=== PATIENT | female | born 1945 | race Caucasian/White ===

== ENCOUNTER → 2016-09-17 | Day surgery (SDC) | payer OTHER ==
[2016-08-28 13:38] VITALS: Ht 156.2 cm; Wt 63.6 kg
[~2016-09-17] VITALS: Ht 156.2 cm; Wt 63.6 kg
[~2016-09-17] MED LIST: 500ML BSS 0.3ML EPI 1:1000PF IRRIG ONE; ACETAMINOPHEN 325 MG TAB PO PRN; AMVISC PLUS 0.8ML SYRINGE INT OCU ONE; ASPI81TA28 PO; B-COCAP2 PO; BETAMETHASONE TOP; BIOT1CAP8 PO; BROM0.0911 OPR; BSS FLUSH ONE; CALC600T PO; CHOL100010 PO; CO Q10 PO; ENDOCOAT 0.85ML SYRINGE INT OCU ONE; EpINEphrine INJ 1MG/ML AMP 1 MG/ML AMP ONE; FENTANYL CITRATE INJ 50 MCG/1 ML 2 ML VIAL ONE; LACTATED RINGER'S 1000ML 500 ML IV SCH; LIDOCAINE 4% OP SOLN DROP CHARGE ONE; LIDOCAINE 4% OP SOLN DROP CHARGE OPR SCH; LIDOCAINE HCL 1% MPF 2 ML VIAL ONE; LOSA50TA6 PO; LOTE0.5S OPR; MIDAZOLAM HCL 1 MG/ML 2ML VIAL ONE; MISCCAP80 PO; MIX: 4ML BSS 1ML EPI 1:1000 PF TOP ONE; MOXIFLOXACIN OPH SOLN PER DROP CHARGE ONE; MULT-506 PO; OMEG10007 PO; POVIDONE-IODINE OP SOLN 30 ML BTL ONE; PRED1SUS OPR; PROPARACAINE 0.5% OP SOLN PER DROP CHARGE OPR SCH; SIMV40TA2 PO; TOBRAMYCIN/DEXAMETHASONE OPH OINT PER APPLN CHARGE ONE; VALA500T39 PO
[2016-09-17] MEDS: PHENYLEPHRINE HCL 2.5% OP SOLN PER DROP CHARGE OPR SCH ×3 (08:25→08:35)
[2016-09-17] MEDS: TROPICAMIDE 1% OP SOLN PER DROP CHARGE OPR SCH ×3 (08:26→08:36)
[2016-09-17] MEDS: CYCLOPENTOLATE HCL 1% OP SOLN PER DROP CHARGE OPR SCH ×3 (08:27→08:37)
[2016-09-17] MEDS: MOXIFLOXACIN OPH SOLN PER DROP CHARGE OPR SCH ×3 (08:28→08:38)
--- NOTE | 2016-09-17 08:50 | History & Physical Bridge - [place] ---
H&P Re-Evaluation Bridge Note: I have examined the patient, reviewed the History & Physical and in the interval since the performance of the History & Physical I have noted the following changes of clinical significance: No changes noted. Right eye cataract surgery.
--- NOTE | 2016-09-17 10:02 | [facility] Post Operative Brief Note ---
Immediate Operative Summary Operative Date September 17, 2016. Pre-Operative Diagnosis Right Eye Cataract Post-Operative Diagnosis Same Procedure(s) Performed Right Cataract Phacoemulsification With Intraocular Lens Implant Surgeon Dr. Floyd Mera Loan Counselor Surgeon(s) None Estimated Blood Loss 0 Findings right cataract Specimens None Complication(s) None Disposition
--- NOTE | 2016-09-17 10:03 | [facility] Operative Report ---
Operative Report Date of Service September 17, 2016. Operative Report Phaco with monofocal IOL DATE OF OPERATION: 09/17/16 PREOPERATIVE DIAGNOSIS: Senile nuclear cataract, right eye POSTOPERATIVE DIAGNOSIS: Senile nuclear cataract, right eye PROCEDURE PERFORMED: Phacoemulsification with intraocular lens implantation, right eye SURGEON: Dr. Filippo Mera ANESTHESIA: Topical with 1% intracameral lidocaine and monitored anesthesia care COMPLICATIONS: None DESCRIPTION OF PROCEDURE: After positively identifying the patient both verbally and by wristband in the preoperative area, the right eye was marked as the operative eye. The patient was then brought back to the operating room by the anesthesia and nursing staff where they were given a drop of Lidocaine and betadine into the operative eye. They were then sterilely prepped and draped in the standard fashion typical for ophthalmic surgery. Steri-strips were placed along the upper eyelids to keep the lashes back, and a lid speculum was placed into the operative eye. At this point, a documented time out was performed with members of the ophthalmology, nursing, and anesthesia staffs all agreeing upon the correct patient, correct location for surgery, correct procedure, and correct type and power of intraocular lens to be implanted. The microscope was then swung into position. First, a paracentesis wound was made using a sideport blade. Then, in sequence, 1% preservative-free lidocaine followed by Endocoat viscoelastic was injected into the anterior chamber. Next , the main incision was made with a keratome blade in triplanar fashion. A sharp cystotome was introduced into the eye and used to create a tear in the anterior capsule, which was directed into a continuous curvilinear capsulorrhexis using Utrata forceps. Hydrodissection was then performed with BSS on a flat-tip cannula. Next, the phacoemulsification handpiece was introduced into the eye and used to remove the nucleus in a [id number]-sum-lolycog fashion. This was done without complication and then the irrigation-aspiration handpiece was introduced into the eye and used to remove all remaining cortical and epinuclear material. Amvisc was then injected into the anterior chamber as well as into the capsular bag and using the lens injector system, an MX60 18.5 D lens, serial number [id number], and expiration date 01/2019 was injected into the capsular bag and rotated into the correct position. Next, the irrigation- aspiration handpiece was used to remove all remaining Amvisc. BSS was used to hydrate the main wound, and then BSS was injected into the paracentesis site to reach physiologic pressure and then the main wound was checked and found to be watertight. The patient was given drops of Vigamox and Tobradex ointment into the operative eye, and then the surrounding area was cleaned and dried. A clear plastic shield was placed over the eye and the patient was then sat up and taken from the operating room by the anesthesia staff having tolerated the procedure well and suffering no complications. DISPOSITION: The patient was returned to the recovery room in stable condition. I attest to the content of the Intraoperative Record and any orders documented therein. Any exceptions are noted below.
--- NOTE | 2016-09-17 10:04 | Discharge Instructions-SurgCtr ---
Discharge Instructions Date of Service September 17, 2016. Visit Reason for Visit: Cataract Right Eye Discharge Discharge Diagnosis / Problem: right cataract Discharge Goals Goal(s): Decrease discomfort, Improve function Activity Recommendations Activity Limitations: as noted below Anesthesia . Post Anesthesia Instructions: If you have had General Anesthesia or IV Sedation: * Do not drive today. * Resume driving when surgeon permits. * Do not make important decisions or sign legal documents today. * Call surgeon for: 1. Temperature elevations greater than 101 degrees F. 2. Uncontrollable pain. 3. Excessive bleeding. 4. Persistent nausea and vomiting. 5. Medication intolerance (nausea, vomiting or rash). * For nausea and vomiting use only clear liquids such as: tea, soda, bouillon until nausea subsides, then gradually increase diet as tolerated. * If you have any concerns or questions, call your surgeon's office. If physician is unavailable and it is an emergency, call 911 or go to the nearest emergency room. . Instructions / Follow-Up Instructions / Follow-Up ACTIVITY RECOMMENDATIONS: * Light activities. * You may walk outside, read, watch television. * You may notice redness on the white part of the eye and some blurry vision - this is normal. MEDICATIONS: Resume previous medications unless instructed otherwise by your surgeon. Start all eye drops at 12 pm today: * Eye drops (today): Prednisone - one drop in operative eye every 2 hours while awake Ofloxacin - one drop in operative eye every 2 hours while awake Bromfenac - one drop in operative eye daily SPECIAL CARE INSTRUCTIONS: * Tape plastic shield over eye to sleep at night. Call your doctor at with any concerns or problems. FOLLOW UP VISIT: Follow-up with Dr Mera at [place] office as scheduled. Diet Recommendations Home Diet: no limitations Procedures Procedures Performed: Right Cataract Phacoemulsification With Intraocular Lens Implant Pending Studies Studies pending at discharge: no Medical Emergencies . Who to Call and When: Medical Emergencies: If at any time you feel your situation is an emergency, please call 911 immediately. . Non-Emergent Contact Non-Emergency issues call your: Surgeon . . "Provider Documentation" section prepared by Filippo Mera. .
[2016-09-17 10:05] VITALS: TEMP 36.5
--- NOTE | 2016-09-17 10:07 | Anesthesia Progress Nt - [facility] ---
Anesthesia Post Op Note Date & Time September 17, 2016 at 10:08 Vital Signs Pain Intensity: 0 Vital Signs Past 12 Hours Date Time Temp Pulse Resp B/P Pulse Ox O2 Delivery O2 Flow Rate FiO2 09/17/16 10:05 36.5 71 16 150/79 99 Room Air 09/17/16 08:16 36.8 74 16 157/75 98 Room Air Notes Mental Status: alert / awake / arousable, participated in evaluation Pt Amnestic to Procedure: No (recall as expected) Nausea / Vomiting: adequately controlled Pain: adequately controlled Airway Patency, RR, SpO2: stable & adequate BP & HR: stable & adequate Hydration State: stable & adequate Anesthetic Complications: no major complications apparent Pt doing well.
[2016-09-17 10:25] VITALS: BP 120/80; PULSE 78; O2SAT 98
== END | disposition home or self-care (01) ==
LOC: X.SURG 08:03
PROVIDERS: ATTEND Ophthalmology
DX: H25.11 Age-related nuclear cataract, right eye (principal); I10 Essential (primary) hypertension; Z79.899 Other long term (current) drug therapy

== ENCOUNTER → 2016-10-01 | Day surgery (SDC) | payer OTHER ==
[2016-09-30 08:19] VITALS: Ht 156.2 cm; Wt 63.6 kg
[~2016-10-01] VITALS: Ht 156.2 cm; Wt 63.6 kg
[~2016-10-01] MED LIST changes: +ATROPINE SULFATE 0.1 MG/ML 5ML SYR IV PRN; +EpHEDrine SULFATE INJ 50 MG/ML AMP IV PRN; +FENTANYL CITRATE INJ 50 MCG/1 ML 2 ML VIAL IV PRN; -FENTANYL CITRATE INJ 50 MCG/1 ML 2 ML VIAL ONE; +FLUMAZENIL 0.1 MG/1 ML 10 ML VIAL IV PRN; +HYDROmorphone INJ 2 MG/ML SYR/VIAL IV PRN; +IOPAMIDOL INJ 61% 15 ML VIAL ONE; +LABETALOL HCL IV 5 MG/ML 20ML IV PRN; +LIDOCAINE 4% OP SOLN DROP CHARGE OPL SCH; -LIDOCAINE 4% OP SOLN DROP CHARGE OPR SCH; +LIDOCAINE HCL 1% MPF 5 ML VIAL ONE; +MEPERIDINE HCL 25 MG/ML CARP IV PRN; +NALOXONE HCL 0.4 MG/1 ML VIAL/CARP IV PRN; +ONDANSETRON INJ 2 MG/ML 2 ML VIAL IV PRN; +PHENYLEPHRINE 100MCG/ML 5ML SYR IV PRN; +PROPARACAINE 0.5% OP SOLN PER DROP CHARGE OPL SCH; -PROPARACAINE 0.5% OP SOLN PER DROP CHARGE OPR SCH; +SODIUM CHLORIDE 0.9% INJ 10 ML VIAL ONE
[2016-10-01] MEDS: PHENYLEPHRINE HCL 2.5% OP SOLN PER DROP CHARGE OPL SCH ×3 (06:34→06:44)
[2016-10-01] MEDS: TROPICAMIDE 1% OP SOLN PER DROP CHARGE OPL SCH ×3 (06:35→06:45)
[2016-10-01] MEDS: CYCLOPENTOLATE HCL 1% OP SOLN PER DROP CHARGE OPL SCH ×3 (06:36→06:46)
[2016-10-01] MEDS: MOXIFLOXACIN OPH SOLN PER DROP CHARGE OPL SCH ×3 (06:37→06:47)
--- NOTE | 2016-10-01 06:42 | History & Physical Bridge - [place] ---
H&P Re-Evaluation Bridge Note: I have examined the patient, reviewed the History & Physical and in the interval since the performance of the History & Physical I have noted the following changes of clinical significance: No changes noted. Left eye cataract surgery.
--- NOTE | 2016-10-01 07:26 | [facility] Post Operative Brief Note ---
Immediate Operative Summary Operative Date October 01, 2016. Pre-Operative Diagnosis Nuclear cataract, left eye Post-Operative Diagnosis Nuclear cataract, left eye Procedure(s) Performed Phacoemulsification with IOL insertion, left eye Surgeon Floyd Mera Superintendent Stations Surgeon(s) n/a Estimated Blood Loss 0 Findings left cataract Specimens None Complication(s) None Disposition
--- NOTE | 2016-10-01 07:27 | [facility] Operative Report ---
Operative Report Date of Service October 01, 2016. Operative Report Phaco with monofocal IOL DATE OF OPERATION: 10/01/16 PREOPERATIVE DIAGNOSIS: Senile nuclear cataract, left eye POSTOPERATIVE DIAGNOSIS: Senile nuclear cataract, left eye PROCEDURE PERFORMED: Phacoemulsification with intraocular lens implantation, left eye SURGEON: Dr. Filippo Mera ANESTHESIA: Topical with 1% intracameral lidocaine and monitored anesthesia care COMPLICATIONS: None DESCRIPTION OF PROCEDURE: After positively identifying the patient both verbally and by wristband in the preoperative area, the left eye was marked as the operative eye. The patient was then brought back to the operating room by the anesthesia and nursing staff where they were given a drop of Lidocaine and betadine into the operative eye. They were then sterilely prepped and draped in the standard fashion typical for ophthalmic surgery. Steri-strips were placed along the upper eyelids to keep the lashes back, and a lid speculum was placed into the operative eye. At this point, a documented time out was performed with members of the ophthalmology, nursing, and anesthesia staffs all agreeing upon the correct patient, correct location for surgery, correct procedure, and correct type and power of intraocular lens to be implanted. The microscope was then swung into position. First, a paracentesis wound was made using a sideport blade. Then, in sequence, 1% preservative-free lidocaine followed by Endocoat viscoelastic was injected into the anterior chamber. Next , the main incision was made with a keratome blade in triplanar fashion. A sharp cystotome was introduced into the eye and used to create a tear in the anterior capsule, which was directed into a continuous curvilinear capsulorrhexis using Utrata forceps. Hydrodissection was then performed with BSS on a flat-tip cannula. Next, the phacoemulsification handpiece was introduced into the eye and used to remove the nucleus in a [id number] fashion. This was done without complication and then the irrigation-aspiration handpiece was introduced into the eye and used to remove all remaining cortical and epinuclear material. Amvisc was then injected into the anterior chamber as well as into the capsular bag and using the lens injector system, an MX60 21.0 D lens, serial number [id number], and expiration date 05/2019 was injected into the capsular bag and rotated into the correct position. Next, the irrigation- aspiration handpiece was used to remove all remaining Amvisc. BSS was used to hydrate the main wound, and then BSS was injected into the paracentesis site to reach physiologic pressure and then the main wound was checked and found to be watertight. The patient was given drops of Vigamox and Tobradex ointment into the operative eye, and then the surrounding area was cleaned and dried. A clear plastic shield was placed over the eye and the patient was then sat up and taken from the operating room by the anesthesia staff having tolerated the procedure well and suffering no complications. DISPOSITION: The patient was returned to the recovery room in stable condition. I attest to the content of the Intraoperative Record and any orders documented therein. Any exceptions are noted below.
[2016-10-01 07:28] VITALS: TEMP 36.6
--- NOTE | 2016-10-01 07:28 | Discharge Instructions-SurgCtr ---
Discharge Instructions Date of Service October 01, 2016. Visit Reason for Visit: Cataract Left Eye Discharge Discharge Diagnosis / Problem: left cataract Discharge Goals Goal(s): Decrease discomfort, Improve function Activity Recommendations Activity Limitations: as noted below Anesthesia . Post Anesthesia Instructions: If you have had General Anesthesia or IV Sedation: * Do not drive today. * Resume driving when surgeon permits. * Do not make important decisions or sign legal documents today. * Call surgeon for: 1. Temperature elevations greater than 101 degrees F. 2. Uncontrollable pain. 3. Excessive bleeding. 4. Persistent nausea and vomiting. 5. Medication intolerance (nausea, vomiting or rash). * For nausea and vomiting use only clear liquids such as: tea, soda, bouillon until nausea subsides, then gradually increase diet as tolerated. * If you have any concerns or questions, call your surgeon's office. If physician is unavailable and it is an emergency, call 911 or go to the nearest emergency room. . Instructions / Follow-Up Instructions / Follow-Up ACTIVITY RECOMMENDATIONS: * Light activities. * You may walk outside, read, watch television. * You may notice redness on the white part of the eye and some blurry vision - this is normal. MEDICATIONS: Resume previous medications unless instructed otherwise by your surgeon. Start all eye drops at 9:30 am today: * Eye drops (today): Prednisone - one drop in operative eye every 2 hours while awake Ofloxacin - one drop in operative eye every 2 hours while awake Bromfenac - one drop in operative eye daily SPECIAL CARE INSTRUCTIONS: * Tape plastic shield over eye to sleep at night. Call your doctor at with any concerns or problems. FOLLOW UP VISIT: Follow-up with Dr Mera at [facility] as scheduled. Diet Recommendations Home Diet: no limitations Procedures Procedures Performed: Phacoemulsification with IOL insertion, left eye Pending Studies Studies pending at discharge: no Medical Emergencies . Who to Call and When: Medical Emergencies: If at any time you feel your situation is an emergency, please call 911 immediately. . Non-Emergent Contact Non-Emergency issues call your: Surgeon . . "Provider Documentation" section prepared by Filippo Mera. .
--- NOTE | 2016-10-01 07:46 | Anesthesiology Progress Note ---
Anesthesia Post Op Note Date & Time October 01, 2016 at 07:46 Vital Signs Pain Intensity: 0 Vital Signs Past 12 Hours Date Time Temp Pulse Resp B/P Pulse Ox O2 Delivery O2 Flow Rate FiO2 10/01/16 07:28 36.6 68 16 143/84 99 Room Air 10/01/16 06:29 36.3 71 16 159/91 98 Room Air Notes Mental Status: alert / awake / arousable, participated in evaluation Pt Amnestic to Procedure: Yes Nausea / Vomiting: adequately controlled Pain: adequately controlled Airway Patency, RR, SpO2: stable & adequate BP & HR: stable & adequate Hydration State: stable & adequate Anesthetic Complications: no major complications apparent
[2016-10-01 07:59] VITALS: BP 125/76; PULSE 76; O2SAT 95
== END | disposition home or self-care (01) ==
LOC: X.SURG 06:12
PROVIDERS: ATTEND Ophthalmology
DX: H25.11 Age-related nuclear cataract, right eye (principal); I10 Essential (primary) hypertension; E78.00 Pure hypercholesterolemia, unspecified; Z79.899 Other long term (current) drug therapy

== ENCOUNTER 2020-10-09 08:11 | Observation (INO) ==
--- NOTE | 2020-09-21 16:04 | PAT Medication Instructions ---
Medication Instructions Date of Service September 21, 2020 Home Medications aspirin 81 mg tablet,delayed release 81 mg PO QPM biotin 5 mg capsule 5 mg PO QAM cholecalciferol (vitamin D3) 25 mcg (1,000 unit) capsule 25 mcg PO QAM coenzyme Q10 75 mg capsule 75 mg PO QPM krill oil 500 mg capsule 500 mg PO QAM lactobacillus combination no.4 3 billion cell capsule 3,000 mmu cells PO QPM mecobalamin (vitamin B12) 1,000 mcg chewable tablet 1,000 mcg PO QPM multivitamin 1 tab PO QPM simvastatin 40 mg tablet 40 mg PO HS valacyclovir 500 mg tablet 500 mg PO QAM Acetyl L Carnitine 1 tab PO QPM losartan 100 mg PO QAM STOP taking 2 weeks before surgery If surgery is within 2 weeks, stop taking as soon as possible. coenzyme Q10 75 mg capsule 75 mg PO QPM krill oil 500 mg capsule 500 mg PO QAM Acetyl L Carnitine 1 tab PO QPM DO NOT take the morning of surgery biotin 5 mg capsule 5 mg PO QAM cholecalciferol (vitamin D3) 25 mcg (1,000 unit) capsule 25 mcg PO QAM valacyclovir 500 mg tablet 500 mg PO QAM losartan 100 mg PO QAM Take morning of surgery With a small sip of water, OTHERWISE NOTHING TO EAT OR DRINK AFTER MIDNIGHT: valacyclovir 500 mg tablet 500 mg PO QAM Take evening before surgery aspirin 81 mg tablet,delayed release 81 mg PO QPM lactobacillus combination no.4 3 billion cell capsule 3,000 mmu cells PO QPM mecobalamin (vitamin B12) 1,000 mcg chewable tablet 1,000 mcg PO QPM multivitamin 1 tab PO QPM simvastatin 40 mg tablet 40 mg PO HS Other Notes If you have any questions please call us at [phone] or [phone] or [phone] or [phone]
--- NOTE | 2020-09-25 09:03 | Anesthesiology Consultation ---
Date of Service September 25, 2020 Assessment & Plan (1) Encounter for pre-operative examination: Chart Review Chart Review: Acceptable Risk for Surgery (pending preop Covid testing results ) and Patient NOT seen in Pre Admission Testing Per PAT appt on 09/25/20, patient resides in [facility]. No recent travel. Wears mask, uses good hand hygiene and socially distances. No known Covid positive contacts or Covid related symptoms. No known Covid infection in the past 90 days. Preop Covid testing scheduled 10/05/20= will await results. Educated on importance of self quarantining, social distancing and wearing mask in public both for the patient and household contacts. Pt fully vaccinated. Teaching & Discussion Pre-Anesthesia Teaching/Discussion Notes: Instructed NPO after midnight before surgery,except medications with 15 cc of water. Medication instructions provided according to the [facility] guidelines. History Surgery Operation Date: 10/09/20 08:50 Proposed Procedures p Right Total Knee Arthroplasty - Joselo Mcclelland MD Height/Weight Height: 5 ft Weight: 67.6 kg Allergies Allergy/AdvReac Type Severity Reaction Status Date / Time celecoxib Allergy Unknown HIVES Verified 09/20/20 09:07 naproxen Allergy Unknown HIVES Verified 09/20/20 09:07 orange Allergy Unknown ORANGE Verified 09/20/20 09:07 JUICE-FACE SWELLING LIBBY Inhibitors AdvReac Unknown cough Verified 09/20/20 09:07 Medications Home Medications Medication Instructions Recorded Confirmed Last Taken aspirin 81 mg tablet,delayed 81 mg PO QPM 09/17/20 09/20/20 Unknown release biotin 5 mg capsule 5 mg PO QAM 09/17/20 09/20/20 Unknown cholecalciferol (vitamin D3) 25 25 mcg PO QAM 09/17/20 09/20/20 Unknown mcg (1,000 unit) capsule coenzyme Q10 75 mg capsule 75 mg PO QPM 09/17/20 09/20/20 Unknown krill oil 500 mg capsule 500 mg PO QAM 09/17/20 09/20/20 Unknown lactobacillus combination no.4 3 3,000 mmu cells PO QPM 09/17/20 09/20/20 Unknown billion cell capsule mecobalamin (vitamin B12) 1,000 1,000 mcg PO QPM 09/17/20 09/20/20 Unknown mcg chewable tablet multivitamin 1 tab PO QPM 09/17/20 09/20/20 Unknown simvastatin 40 mg tablet 40 mg PO HS 09/17/20 09/20/20 Unknown valacyclovir 500 mg tablet 500 mg PO QAM 09/17/20 09/20/20 Unknown Acetyl L Carnitine 1 tab PO QPM 09/20/20 09/20/20 Unknown losartan 100 mg PO QAM 09/20/20 09/20/20 Unknown Past Medical History Medical History (Updated 09/26/20 @ 10:17 by Cassia Patel PA-C) Arthritis of right knee Cancer BASAL CELL FACE- S/P MOHS PROCEDURE X 3 History of shingles RIGHT EYE-2014 -F/U EYE DR ROUTINELY -TAKES VALACYCLOVIR DAILY RIGHT EYE PTOSIS Hyperlipidemia Hypertension Exercise / Class Metabolic Activity II 4-5 Yardwork/Stairs/Walk up hill (ONE FLIGHT OF STAIRS - NO CHEST PAIN OR SOB ) Past Family History Family History Grandmother (Maternal) Family history of diabetes mellitus Family hx of colon cancer Mother Family history of diabetes mellitus Son Family history of diabetes mellitus Past Surgical History Surgical History History of bunionectomy History of colonoscopy History of hysterectomy TOTAL History of left knee replacement 2015 Past Anesthesia History No Hx of Anesthesia Complications and No Family Hx of Anesthesia Complications History of PONV No Hx of PONV and No Hx of Motion Sickness Social History Smoking Status: Never smoker Do You Dip or Chew Tobacco: No Hx Alcohol Use: No Hx Substance Use: No Review of Systems Patient denies chest pain, shortness of breath, dyspnea on exertion, reflux, cough, wheezing, palpitations. No hx of seizures, stroke, ND, apnea/significant snoring. No hx of blood clots or blood transfusions Physical Exam Vital Signs VITALS BP 144/85 P 76 TEMP 98.4 SP02 98% RESP 16 Constitutional no acute distress ENMT Mouth: no TMJ clicking Thyromental Distance: > or= 3.5 Finger Breadths (3.5) Mallampati Class: III Missing molars Caps on molars Neck + limited neck extension (moderate to severe ) Respiratory normal respiratory effort; no respiratory distress Auscultation: lungs clear to auscultation bilaterally; no wheezes Cardiovascular Rate/Rhythm: regular rate and regular rhythm Heart Sounds: no murmur Vessels: no carotid bruit Musculoskeletal Spine: no pain with cervical ROM Extremities: extremities normal to inspection Psychiatric Orientation: alert Lab Results Anesthesia Preop Results Results Anesthesia Widget: WBC 4.69 K/uL (4.8-10.8) L 09/25/20 Hgb 13.1 g/dL (12.0-16.0) 09/25/20 Hct 39.9 % (37-47) 09/25/20 Plt 329 K/uL (130-400) 09/25/20 Na 142 mmol/L (136-145) 09/25/20 K 4.7 mmol/L (3.5-5.1) 09/25/20 Cl 112 mmol/L (98-107) H 09/25/20 CO2 29 mmol/L (21-32) 09/25/20 BUN 18 mg/dl (7-18) 09/25/20 Creat 0.75 mg/dl (0.6-1.2) 09/25/20 Glucose Level 95 mg/dl (70-99) 09/25/20 PT 10.1 Seconds (9.0-12.0) 09/25/20 PTT 23.9 Seconds (21.0-31.0) 09/25/20 INR 1.0 (0.9-1.1) 09/25/20 Blood Type A Positive 09/25/20 Antibody Screen NEGATIVE 09/25/20 Testing Electrocardiogram Date: 09/25/20 SR with PACs at 63bpm. ST and T wave abnormality, consider anterior ischemia. When compared to EKG from Jan 23, 2016- PACs are now present per cardio. Chest X-Ray Date: 09/25/20 Findings: + NAD
[~2020-10-09 08:11] MED LIST changes: -500ML BSS 0.3ML EPI 1:1000PF IRRIG ONE; -ACETAMINOPHEN 325 MG TAB PO PRN; +ACETAMINOPHEN 500 MG TAB PO SCH; -AMVISC PLUS 0.8ML SYRINGE INT OCU ONE; -ASPI81TA28 PO; -ATROPINE SULFATE 0.1 MG/ML 5ML SYR IV PRN; -B-COCAP2 PO; -BETAMETHASONE TOP; -BIOT1CAP8 PO; -BROM0.0911 OPR; -BSS FLUSH ONE; +BUPIVACAINE 0.5 % 5 MG/1 ML PF 10ML VIAL ONE; -CALC600T PO; -CHOL100010 PO; -CO Q10 PO; -ENDOCOAT 0.85ML SYRINGE INT OCU ONE; -EpHEDrine SULFATE INJ 50 MG/ML AMP IV PRN; -EpINEphrine INJ 1MG/ML AMP 1 MG/ML AMP ONE; +FAMOTIDINE 20 MG TAB PO SCH; -FENTANYL CITRATE INJ 50 MCG/1 ML 2 ML VIAL IV PRN; -FLUMAZENIL 0.1 MG/1 ML 10 ML VIAL IV PRN; +GABAPENTIN 300 MG CAP PO SCH; -HYDROmorphone INJ 2 MG/ML SYR/VIAL IV PRN; -IOPAMIDOL INJ 61% 15 ML VIAL ONE; -LABETALOL HCL IV 5 MG/ML 20ML IV PRN; -LACTATED RINGER'S 1000ML 500 ML IV SCH; -LIDOCAINE 4% OP SOLN DROP CHARGE ONE; -LIDOCAINE 4% OP SOLN DROP CHARGE OPL SCH; -LIDOCAINE HCL 1% MPF 2 ML VIAL ONE; -LIDOCAINE HCL 1% MPF 5 ML VIAL ONE; -LOSA50TA6 PO; -LOTE0.5S OPR; +LR 500ML BOLUS, THEN 15ML/HR IV SCH; +LR 60ML/HR IV SCH; -MEPERIDINE HCL 25 MG/ML CARP IV PRN; -MIDAZOLAM HCL 1 MG/ML 2ML VIAL ONE; -MISCCAP80 PO; -MIX: 4ML BSS 1ML EPI 1:1000 PF TOP ONE; -MOXIFLOXACIN OPH SOLN PER DROP CHARGE ONE; -MULT-506 PO; -NALOXONE HCL 0.4 MG/1 ML VIAL/CARP IV PRN; -OMEG10007 PO; -ONDANSETRON INJ 2 MG/ML 2 ML VIAL IV PRN; -PHENYLEPHRINE 100MCG/ML 5ML SYR IV PRN; -POVIDONE-IODINE OP SOLN 30 ML BTL ONE; -PRED1SUS OPR; -PROPARACAINE 0.5% OP SOLN PER DROP CHARGE OPL SCH; +ROPIVACAINE 0.5% 5 MG/ML 30 ML VIAL ONE; -SIMV40TA2 PO; -SODIUM CHLORIDE 0.9% INJ 10 ML VIAL ONE; -TOBRAMYCIN/DEXAMETHASONE OPH OINT PER APPLN CHARGE ONE; +TRANEXAMIC ACID 1,000 MG **IV Intra-op IV SCH; -VALA500T39 PO; +ceFAZolin 2000MG 2,000 MG/15 ML SYR IV SCH
--- NOTE | 2020-10-09 08:43 | History & Physical Bridge Note ---
Date of Service October 09, 2020 History & Physical Bridge Note I have examined the patient, reviewed the History & Physical and in the interval since the performance of the History & Physical I have noted the following changes of clinical significance: no changes noted
[2020-10-09] MEDS ORDERED: MIDAZOLAM HCL 1 MG/ML 2ML VIAL ONE (09:40)
[2020-10-09] MEDS ORDERED: fentaNYL citrate 100 MCG/2 ML VIAL ONE (09:41)
[2020-10-09] MEDS ORDERED: LIDOCAINE 2% 2 ML VIAL/AMP(20MG/ML) INFIL ONE (10:22)
[2020-10-09] MEDS ORDERED: ONDANSETRON INJ 2 MG/ML 2 ML VIAL ONE (10:22)
[2020-10-09] MEDS ORDERED: PROPOFOL IV EMULSION 10 MG/ML 20 ML VIAL IV ONE (10:22)
[2020-10-09] MEDS ORDERED: ePHEDrine sulfate 50 MG/ML AMP IV PRN (10:29)
[2020-10-09] MEDS ORDERED: ATROPINE SULFATE 0.1 MG/ML 10ML SYR IV PRN (10:29)
[2020-10-09] MEDS ORDERED: HYDROmorphone INJ 1 MG/ML SYRINGE IV PRN (10:29)
[2020-10-09] MEDS ORDERED: ONDANSETRON INJ 2 MG/ML 2 ML VIAL IV PRN ×2 (10:29→14:23)
[2020-10-09] MEDS ORDERED: SODIUM CHLORIDE 0.9% PF 50 ML VIAL ONE ×2 (11:09→11:41)
[2020-10-09] MEDS ORDERED: EPINEPHrine INJ 1 MG/ML AMP ONE (11:10)
[2020-10-09] MEDS ORDERED: BUPIVACAINE 0.25% 30 ML VIAL ONE (11:10)
[2020-10-09] MEDS ORDERED: BUPIVACAINE LIPOSOME 1.3% 266 MG/20 ML VIAL ONE ×2 (11:10→11:42)
--- NOTE | 2020-10-09 13:17 | Operative Report ---
Post Operative Report Pre & Post Diagnosis Operation Date: 10/09/20 10:40 Pre-Op Diagnosis: Right Knee Osteoarthritis Post-Op Diagnosis: Right Knee Osteoarthritis I identified the patient and participated in the time-out.: Yes Procedure Operation Date: 10/09/20 10:40 Actual Procedures p Right Total Knee Arthroplasty(Right) - Joselo Mcclelland MD Surgeon Joselo Mcclelland MD Asparagus Buncher TANYA Issa Estimated Blood Loss 50 Findings Consistent with Post-Op Diagnosis Operative findings revealed advanced right knee DJD. She had extensive grade 4 padm-yo-ltol disease and eburnation of the entire medial compartment as well as the patellofemoral compartment. She had a varus deformity to her knee. Moderate sized knee joint effusion. Diffuse osteopenia. Fluids 1200 cc Specimens Right knee sent for pathology. Drains None. Anesthesia Type Spinal MAC Complications none Disposition Accompanied Patient To Recovery: No Disposition: Recovery Room Indications Patient 75-year-old female is a long history of bilateral knee pain discomfort and degenerative arthritis. She underwent a left knee replacement about 5 years ago and is done well from this. She been putting up with her right knee over the years but this became much more difficult over time patient failed all conservative measures. She elected proceed with total knee arthroplasty. Description of Procedure Operative implants consisted of: 1. Biomet Vanguard size 62.5 right posterior stabilized femoral component. 2. Biomet size 63 tibial tray. 3. 10 mm posterior stabilized polyethylene insert. 4. 28 x 8 all polypatella. The patient was taken to the operating, identified, placed on the operating table supine position but all contact areas were properly padded. IV antibiotics tried by anesthesia team. Spinal anesthetic and abductor canal block had been provided in the holding area. Alonso catheter was placed in sterile fashion. Right factor was then placed in the right lower extremities and prepped and draped in usual sterile fashion. The right leg was elevated exsanguinated with use of an Esmarch and tourniquet placed at 300 mmHg. An anterior approach to the right knee was then performed through longitudinal incision centered over the patella. Sharp dissection was carried through subcutaneous tissue down the extensor mechanism. A medial parapatellar arthrotomy incision was made. Some subperiosteal dissection was carried out medially. The fat pad was resected beneath patella tendon. The lateral patellofemoral ligament was released. Patella was subluxated laterally and the knee was flexed. The osteophytes were taken off distal femur. The ACL and PCL were then released from distal femur and the tibia subluxated anteriorly. The external tibial alignment jig was then placed in the interface the tibia and adjusted 14 mm medially. Proximal tibial cut was made to remove about a millimeter or 2 of bone from most deficient aspect medial tibial plateau. Some osteophytes were taken off medial and posterior medially. We sized the tibia to a size 63. We did downsize it in order to get appropriate rotation of the tibial tray. Attention drawn the femur. The distal femur then with a sharp drill. Intramedullary canal was suction. A right 5 degree valgus cutting guide was placed. Distal femoral cutting block was pinned in place. Distal femoral cut was made to take an additional 3 mm bone off distal femur. Femur was then sized to a size 62.5. Sized exactly to a 62.5. The AP cutting block was pinned parallel to the epicondylar axis which was 3 degrees of external rotation. The anterior cut, anterior chamfer, posterior cut, posterior chamfer cuts were made. The box cutting guide was placed in just slight lateral box cut was made. The knee was flexed. The remnants of the medial and lateral menisci were excised. The osteophytes were taken off the posterior aspect of femur. A trial femoral component was placed. The tibial tray was pinned in maximum external rotation and the drill and stem punch were used to create defect in proximal tibia for the tibial tray. The knee was then trialed and the 10 mm insert fit most appropriately. Attention drawn the patella. The patella was cleaned of all soft tissues. Patella thickness measured 18 mm in thickness as it was quite warm. Was cut down to 12 mm in thickness. Was sized to a size 28 patella. The lug holes were drilled for the 28 patella. The lateral osteophyte is moved. Patella button was placed. Knee was taken through range of motion and the patella tracked nicely with no thumbs test. Attention drawn to place the permanent components. All trial components were removed. Bone plug was placed in the distal femur limit blood loss. A double batch Palacos G cement was mixed. A Biomet Vanguard size 62.5 right posterior stabilized femoral component, size 63 tibial tray, 10 mm posterior stabilized polyethylene insert, and a 28 x 8 all polypatella were then cemented in place. Knee was brought out into full extension total cement hardened. Final cement check was then performed. Pericapsular tissues were injected with total of 100 cc of combination of 20 cc of Exparel, 30 cc of normal saline, 50 cc of quarter percent Marcaine with epinephrine. Patient did receive 1 g tranexamic acid. The tourniquet was let down for final tourniquet time of 58 minutes. Hemostasis assured use electrocautery. Extensor mechanism closed with combination 1 PDS suture #1 Vicryl suture in [id number] fashion. Extensor mechanism checked and found to be intact with subcutaneous tissue then closed with 2 Dexon suture in a buried interrupted fashion skin was closed skin alonso. Leg was then cleaned and dried and sterile dressing composed of Xeroform, 4 x 4's, sterile cast padding, Preston bandage were applied. Patient then transferred to the recovery room in stable condition. Patient tolerated procedure well and there were no complications. Kenn Issa, my physician photographer assistant, was present for the entire procedure. His assistance was essential and required for appropriate patient positioning, prepping and draping, surgical exposure, performing the technical details of the operation, placement the implants, closure of the wound, and placement of the sterile bandage. I attest to the content of the Intraoperative Record and any orders documented therein. Any exceptions are noted below.
--- NOTE | 2020-10-09 13:53 | XRay Report ---
RIGHT KNEE 2 VIEWS History: Right total knee arthroplasty. Degenerative arthritis. Postop. FINDINGS: The patient is status post a right total knee arthroplasty. The hardware is intact. No frac ture or dislocation. Skin alonso are in place. IMPRESSION: Right total knee arthroplasty. No evidence for hardware complication. ACT 112: Negative or not required by law. Electronically signed by: Brenden Perkins M.D. 10/09/2020 1:51 PM
--- NOTE | 2020-10-09 13:56 | Anesthesiology Progress Note ---
Date of Service October 09, 2020 Anesthesia Post Procedure Vital Signs Vital Signs: Temp Pulse Pulse Resp BP BP Pulse Ox 10/09/20 13:55 36.1 C L 65 14 153/70 H 95 10/09/20 13:45 75 15 145/73 H 96 10/09/20 13:30 62 15 154/73 H 97 10/09/20 13:20 70 12 141/81 H 93 10/09/20 13:10 36.2 C L 74 15 141/69 H 95 10/09/20 09:03 37.0 C 84 20 156/95 H 97 Pain Intensity Right Knee: Pain Intensity: 1 Transfer of Care Handoff Completed per policy Notes Mental Status: alert / awake / arousable Patient Amnestic to Procedure: Yes Nausea / Vomiting: adequately controlled Pain: adequately controlled Airway Patency, RR, SpO2: stable & adequate BP & HR: stable & adequate Hydration State: stable & adequate Neuraxial Anesthesia: was administered and sensory block is resolving Anesthetic Complications: no major complications apparent
[2020-10-09] MEDS ORDERED: MAGNESIUM HYDROXIDE SUSP 30 ML UDC PO PRN (14:23)
[2020-10-09] MEDS ORDERED: traMADol HCL 50 MG TABLET PO PRN (14:23)
[2020-10-09] MEDS ORDERED: bisacodyL 10 MG SUPP PR PRN (14:23)
[2020-10-09] MEDS ORDERED: HYDROmorphone INJ 0.5 MG/0.5 ML SYR IV PRN (14:23)
[2020-10-09] MEDS ORDERED: ALUMINUM/MAGNESIUM SUSP 30 ML UDC PO PRN (14:23)
[2020-10-09] MEDS ORDERED: METOCLOPRAMIDE HCL INJ 5 MG/ML 2 ML VIAL IV PRN (14:23)
[2020-10-09] MEDS ORDERED: NALOXONE HCL 0.4 MG/1 ML VIAL/CARP IV PRN (14:23)
[2020-10-09] MEDS: SODIUM CHLORIDE 0.9% 1000ML 1,000 ML IV SCH ×2 (15:17→23:41)
[2020-10-09] MEDS: ACETAMINOPHEN 500 MG TAB PO SCH ×2 (16:44→21:34)
[2020-10-09] MEDS: KETOROLAC TROMETHAMINE 15 MG/ML VIAL IV SCH ×2 (16:46→21:35)
[2020-10-09] MEDS: ASCORBIC ACID 500 MG TAB PO SCH (18:06)
[2020-10-09] MEDS ORDERED: TRANEXAMIC ACID / 0.7% NACL 1,000 MG/100 ML BAG IV SCH (19:00)
[2020-10-09] MEDS: ceFAZolin 1000MG 1,000 MG/7.5 ML SYR IV SCH (19:34)
[2020-10-09] MEDS: ASPIRIN 81 MG ECTAB PO SCH (20:29)
[2020-10-09] MEDS: ADVANCED PROBIOTIC 1250 MG CAPSULE PO SCH (20:29)
[2020-10-09] MEDS: SENNA 8.6 MG TAB PO SCH (20:29)
[2020-10-09] MEDS: CYANOCOBALAMIN 500 MCG TABLET (VITAMIN B-12) PO SCH (20:29)
[2020-10-09] MEDS: MULTIVITAMIN TAB PO SCH (20:29)
[2020-10-09] MEDS: DOCUSATE SODIUM 100 MG CAP PO SCH (20:29)
[2020-10-09] MEDS: SIMVASTATIN 40 MG TAB PO SCH (20:30)
[2020-10-09] MEDS ORDERED: NON-FORMULARY MEDICATION (Coenzyme Q10 [Ultra Coq10] 75 mg capsule) PO SCH (21:00)
[2020-10-09] MEDS ORDERED: ACETYL CARNITINE PO SCH (21:00)
[2020-10-10] MEDS: KETOROLAC TROMETHAMINE 15 MG/ML VIAL IV SCH ×4 (03:20→21:29)
[2020-10-10] MEDS: ceFAZolin 1000MG 1,000 MG/7.5 ML SYR IV SCH (03:20)
[2020-10-10] MEDS: ACETAMINOPHEN 500 MG TAB PO SCH ×3 (05:33→21:29)
[2020-10-10] MEDS ORDERED: dexAMETHasone 4 MG TAB PO SCH (08:00)
[2020-10-10] MEDS: DOCUSATE SODIUM 100 MG CAP PO SCH ×2 (08:23→20:53)
[2020-10-10] MEDS: ASCORBIC ACID 500 MG TAB PO SCH ×2 (08:23→15:45)
[2020-10-10] MEDS: ASPIRIN 81 MG ECTAB PO SCH ×2 (08:24→20:53)
[2020-10-10] MEDS: LOSARTAN POTASSIUM 50 MG TAB PO SCH (08:24)
[2020-10-10] MEDS: valACYclovir HCL 500 MG TABLET PO SCH (08:24)
[2020-10-10] MEDS: CHOLECALCIFEROL 1,000 UNITS 25 MCG TAB PO SCH (08:24)
[2020-10-10 08:35] LABS: Hematocrit (blood only) 36.5 % (37-47); Mean Corpuscular Hemoglobin 28.8 pg (25-34); Mean Corpuscular Hgb Conc 32.9 g/dL (32-36); Mean Corpuscular Volume 87.7 fL (80-100); Mean Platelet Volume 8.6 fL (7.4-10.4); Platelet Count 299 K/uL (130-400); RDW Coefficient of Variation 14.2 % (11.5-14.5); Red Blood Count 4.16 M/uL (4.2-5.4); White Blood Count 7.39 K/uL (4.8-10.8)
[2020-10-10] MEDS ORDERED: MULTIVITAMIN TAB PO SCH (09:00)
[2020-10-10] MEDS ORDERED: NON-FORMULARY MEDICATION (Biotin 5 mg capsule) PO SCH (09:00)
[2020-10-10] MEDS ORDERED: NON-FORMULARY MEDICATION (Krill Oil 500 mg capsule) PO SCH (09:00)
[2020-10-10 09:05] LABS: BUN Creatinine Ratio 16.3 (10-20); Calcium 8.8 mg/dl (8.5-10.1); Creatinine Clr Calc Pharmacy 52.6 ml/min; Est GFR (African American) 84.2 ml/min; Est GFR (Non-African American) 72.6 ml/min
--- NOTE | 2020-10-10 11:44 | Progress Notes ---
DATE: 10/10/2020 SUBJECTIVE: A 75-year-old female postop day 1 from a right knee replacement. She is doing pretty well. A bit more painful last night, doing a little bit better this morning. No chest pain or shortness of breath. Not feeling dizzy or lightheaded. OBJECTIVE: VITAL SIGNS: Temperature is 36.7. Vital signs stable. GENERAL: Shows a pleasant elderly female. She is sitting up in bed, looks reasonably comfortable. LUNGS: Clear to auscultation. HEART: Has a regular rate and rhythm. ABDOMEN: Soft, nontender, nondistended. EXTREMITIES: Grossly neurovascularly intact except as follows. Examination of the right leg reveals the leg to be well aligned. Dressing is clean, dry and intact. She can dorsiflex and plantarflex her foot appropriately. She is neurologically intact. LABORATORY DATA: Hemoglobin 12.0. Hematocrit is 36.5. Electrolytes are stable. ASSESSMENT: A 75-year-old female postop day 1 from a right knee replacement, doing reasonably well. Pain seems to be pretty well controlled. Seems to be a bit better this morning. PLAN: 1. DVT prophylaxis including thigh-high TEDs, SCDs, and aspirin twice a day. 2. PT/OT. Weight bear as tolerated. Right total knee protocol. 3. Pain control, doing well with current pain regimen. 4. Disposition: She is hoping to be discharged to home. She is going to have home health. We are going to see how she does in therapy today and hopefully discharge tomorrow with home health.
[2020-10-10] MEDS: SIMVASTATIN 40 MG TAB PO SCH (20:53)
[2020-10-10] MEDS: MULTIVITAMIN TAB PO SCH (20:53)
[2020-10-10] MEDS: ADVANCED PROBIOTIC 1250 MG CAPSULE PO SCH (20:53)
[2020-10-10] MEDS: SENNA 8.6 MG TAB PO SCH (20:53)
[2020-10-10] MEDS: CYANOCOBALAMIN 500 MCG TABLET (VITAMIN B-12) PO SCH (20:54)
[2020-10-11] MEDS: KETOROLAC TROMETHAMINE 15 MG/ML VIAL IV SCH ×2 (04:29→11:50)
[2020-10-11] MEDS: ACETAMINOPHEN 500 MG TAB PO SCH ×2 (05:30→13:55)
[2020-10-11] MEDS: ASCORBIC ACID 500 MG TAB PO SCH (07:47)
[2020-10-11] MEDS: ASPIRIN 81 MG ECTAB PO SCH (07:47)
[2020-10-11] MEDS: valACYclovir HCL 500 MG TABLET PO SCH (07:47)
[2020-10-11] MEDS: CHOLECALCIFEROL 1,000 UNITS 25 MCG TAB PO SCH (07:47)
[2020-10-11] MEDS: LOSARTAN POTASSIUM 50 MG TAB PO SCH (07:47)
[2020-10-11] MEDS: DOCUSATE SODIUM 100 MG CAP PO SCH (07:47)
--- NOTE | 2020-10-11 08:14 | Progress Notes ---
DATE: 10/11/2020 SUBJECTIVE: A 75-year-old white female postop day 2 from a right knee replacement. She is doing pretty well. Therapy went pretty good yesterday. Her pain has been controlled. No chest pain or shortness of breath. Not feeling dizzy or lightheaded. OBJECTIVE: VITAL SIGNS: Temperature is 36.7. Vital signs stable. GENERAL: Shows a pleasant elderly female. She was walking around the room this morning when I visited her. She is getting around quite well. EXTREMITIES: Examination of the right leg reveals the dressing to be clean, dry and intact. Some mild swelling. She can dorsiflex and plantarflex her foot appropriately. She is neurologically intact. ASSESSMENT: A 75-year-old white female postop day 2 from a right knee replacement, doing pretty well. She is mobilizing well. Pain is controlled. She is getting around safely. PLAN: 1. DVT prophylaxis including thigh-high TEDs, SCDs, and aspirin twice a day. 2. PT/OT. Weight bear as tolerated. Right total knee protocol. 3. Pain control, doing well with current pain regimen. 4. Disposition: Plan to discharge to home with some home health and her family's assistance likely after therapy today.
--- NOTE | 2020-10-16 06:26 | Discharge Summary ---
Date of Service October 16, 2020 Discharge Data Procedures Performed Operation Date: 10/09/20 10:40 Actual Procedures p Right Total Knee Arthroplasty(Right) - Joselo Mcclelland MD Hospital Course (1) Status post total right knee replacement: 75 year old patient admitted on 10/09/20 and underwent total knee arthroplasty. She tolerated the procedure well and there were no complications. Transferred to the PACU post op and later to the orthopedic floor for further care. She was given ancef for antibiotic prophylaxis. She was also given SANDRA stockings, SCDs, and aspirin for DVT prophylaxis. Hemoglobin, hematocrit, and vital signs were monitored during her hospital stay and remained stable. Did not require any blood transfusions. There were no complications during her hospital stay. By post op day #2 the patient was tolerating a regular diet, pain was reasonably controlled with oral pain medicine, and she was participating in physical therapy. On post op day #2 the patient was discharged home and set up with home health care. She was given printed discharge instructions including prescriptions for extra strength tylenol, aspirin, and tramadol. Continue physical therapy, weight bearing as tolerated. Continue SANDRA stockings. Follow up approximately 2 weeks post op or sooner if there are problems or concerns. Coding Level of Care Code None Diagnoses Status post total right knee replacement Z96.651
== END 2020-10-11 14:23 | disposition home health service (06) ==
LOC: ASU 08:11 → 3E 08:11
DX: Z88.6 Allergy status to analgesic agent; Z86.19 Personal history of other infectious and parasitic diseases; Z96.652 Presence of left artificial knee joint; E78.5 Hyperlipidemia, unspecified; Z88.1 Allergy status to other antibiotic agents; Z79.899 Other long term (current) drug therapy; E78.00 Pure hypercholesterolemia, unspecified; Z79.82 Long term (current) use of aspirin; Z88.8 Allergy status to other drugs, medicaments and biological substances; M17.11 Unilateral primary osteoarthritis, right knee; I10 Essential (primary) hypertension